=== PATIENT | male | born 1945 | race Caucasian/White ===

== ENCOUNTER 2023-06-30 11:09 | Day surgery (SDC) | payer MEDICARE ==
[2023-06-30 12:18] VITALS: BMI 34.0
[2023-06-30] MEDS ORDERED: PROPOFOL 20 ML ONE (12:53)
[2023-06-30 13:53] VITALS: TEMP 97
== END 2023-06-30 14:52 | disposition home or self-care (01) ==
LOC: CSHSDC 11:09
PROVIDERS: ATTEND Internal Medicine Cardiovascular Disease
DX: I48.0 Paroxysmal atrial fibrillation (principal); I25.10 Atherosclerotic heart disease of native coronary artery without angina pectoris; I47.1 Supraventricular tachycardia; I10 Essential (primary) hypertension; E78.5 Hyperlipidemia, unspecified
CPT/HCPCS: 92960; 93005; 93010; J2704